=== PATIENT | female | born 1980 | race Caucasian/White ===

== ENCOUNTER 2018-06-02 06:27 | Day surgery (SDC) | payer OTHER, MEDICAID ==
[~2018-06-02] VITALS: Ht 162.6 cm; Wt 73.5 kg
[~2018-06-02 06:27] MED LIST: AMIT10TA6 PO; BUSP15 PO; CALC-1085 PO; CALC625T66 PO; DENO60DI SQ; DOCU250C91 PO; ESCI10TA PO; GABA-531 PO; NAPR-58 PO; THIO50 PO; TOLT2CAP27 PO
[2018-06-02] MEDS ORDERED: PROPOFOL 1% 20 ML VIAL IVP ONE (06:28)
[2018-06-02] MEDS ORDERED: ROCURONIUM BROMIDE 10 MG/ML 5 ML VIAL IVP ONE (06:28)
[2018-06-02] MEDS ORDERED: LIDOCAINE/PF 2% 5 ML VIAL INJ ONE (06:28)
[2018-06-02] MEDS ORDERED: RINGERS SOLUTION,LACTATED 1,000 ML IV ONE ×2 (06:47→07:00)
[2018-06-02] MEDS ORDERED: MIDAZOLAM HCL 2 MG/2 ML VIAL IVP ONE (12:00)
[2018-06-02] MEDS ORDERED: FentaNYL CITRATE-PF 100 MCG/2 ML VIAL IVP ONE (12:00)
== END 2018-06-02 12:25 | disposition home or self-care (01) ==
LOC: SURGERY 06:27
PROVIDERS: ATTEND Dentist General Practice
DX: K05.30 Chronic periodontitis, unspecified (principal); K03.6 Deposits [accretions] on teeth; F41.9 Anxiety disorder, unspecified; H54.40 Blindness, one eye, unspecified eye; F72 Severe intellectual disabilities
CPT/HCPCS: 36415; 41899; 84703; J2250; J2704; J3010; J3490 ×2; J7120

== ENCOUNTER 2019-10-26 05:43 | Day surgery (SDC) | payer OTHER, MEDICAID ==
[~2019-10-26] VITALS: Ht 167.6 cm; Wt 66.0 kg
[~2019-10-26 05:43] MED LIST changes: +CHLO25 PO; +DOCU-342 PO; -DOCU250C91 PO; +NALT50TA6 PO; +NAPR-1025 PO; -NAPR-58 PO; +RINGERS SOLUTION,LACTATED 1,000 ML IV ONE; -THIO50 PO; +TOLT2CAP PO; -TOLT2CAP27 PO
[2019-10-26] MEDS ORDERED: METOCLOPRAMIDE HCL 5 MG/ML 2 ML VIAL IVP ONE (05:44)
[2019-10-26] MEDS ORDERED: ONDANSETRON HCL 4 MG/2 ML VIAL IVP ONE (05:44)
[2019-10-26] MEDS ORDERED: PROPOFOL 1% 20 ML VIAL IVP ONE (05:44)
[2019-10-26] MEDS ORDERED: DEXAMETHASONE SOD PHOS 4 MG/ML VIAL IVP ONE (05:44)
[2019-10-26] MEDS ORDERED: FentaNYL CITRATE-PF 100 MCG/2 ML VIAL IVP ONE (05:44)
[2019-10-26] MEDS ORDERED: SUCCINYLCHOLINE CHLORIDE 20 MG/ML 10 ML VIAL IVP ONE (05:44)
[2019-10-26] MEDS ORDERED: RINGERS SOLUTION,LACTATED 1,000 ML IV ONE (06:30)
[2019-10-26] MEDS ORDERED: AMPICILLIN SODIUM 1 GM/VIAL ONE ×2 (07:24→07:25)
[2019-10-26] MEDS ORDERED: SODIUM CHLORIDE 0.9% 100 ML ONE (07:25)
[2019-10-26] MEDS ORDERED: MEPERIDINE-PF 25 MG/ML VIAL IVP PRN (10:00)
[2019-10-26] MEDS ORDERED: HYDROmorphone 2 MG/ML SYRINGE IVP PRN (10:00)
[2019-10-26] MEDS ORDERED: FentaNYL CITRATE-PF 100 MCG/2 ML VIAL IVP PRN (10:00)
== END 2019-10-26 11:55 | disposition home or self-care (01) ==
LOC: SURGERY 05:43
PROVIDERS: ATTEND Dentist General Practice
DX: K02.9 Dental caries, unspecified (principal); K05.30 Chronic periodontitis, unspecified; K03.6 Deposits [accretions] on teeth; F41.9 Anxiety disorder, unspecified; M85.80 Other specified disorders of bone density and structure, unspecified site; Z79.899 Other long term (current) drug therapy; Z79.01 Long term (current) use of anticoagulants; R97.8 Other abnormal tumor markers
CPT/HCPCS: 36415; 41899; 84702; J0290; J0330; J1100; J2405; J2704; J2765; J3010; J7050; J7120

== ENCOUNTER 2020-11-28 06:47 | Day surgery (SDC) | payer OTHER, MEDICAID ==
[~2020-11-28] VITALS: Ht 165.1 cm; Wt 63.6 kg
[~2020-11-28 06:47] MED LIST changes: -CHLO25 PO; +CHLO25TA47 PO; -DOCU-342 PO; +DOCU-350 PO; +ESCI-8 PO; -ESCI10TA PO; +GABA-1181 PO; -GABA-531 PO
[2020-11-28] MEDS ORDERED: RINGERS SOLUTION,LACTATED 1,000 ML IV ONE (07:00)
[2020-11-28] MEDS ORDERED: AMPICILLIN SODIUM 1 GM/VIAL ONE (07:21)
[2020-11-28 08:17] LABS: BASOPHILS % (AUTO) 0.3 % (0.0-2.0); EOSINOPHILS % (AUTO) 1.2 % (1.0-6.0); HEMATOCRIT 38.6 % (36-46); HEMOGLOBIN 12.8 g/dL (12.0-16.0); LYMPHOCYTES % (AUTO) 24.1 % (22.0-44.0); MEAN CORPUSCULAR HEMOGLOBIN 30.2 pg (26.0-34.0); MEAN CORPUSCULAR HGB CONC 33.2 G/dL (31.0-37.0); MEAN CORPUSCULAR VOLUME 91 fL (80-100); MONOCYTES # (AUTO) 0.3 K/uL (0.1-1.0); MONOCYTES % (AUTO) 7.9 % (2.0-9.0); NEUTROPHILS # (AUTO) 2.6 K/uL (1.8-7.7); NEUTROPHILS % (AUTO) 66.5 % (40.0-70.0); PLATELET COUNT (AUTO) 160 K/uL (150-450); RED BLOOD CELL COUNT(AUTO) 4.25 MIL/uL (4.00-5.20); RED CELL DISTRIBUTION WIDTH 13.7 % (11.5-14.5)
[2020-11-28 08:20] LABS: COVID AG,FIA SOURCE NASOPHARYNGEAL
[2020-11-28 08:25] LABS: PROTHROMBIN TIME 10.9 SEC (9.4-11.6)
[2020-11-28 08:31] LABS: ANION GAP 11 mmol/L (8-16); CALCIUM, TOTAL 8.7 mg/dL (8.8-10.5); CARBON DIOXIDE 24 mmol/L (22-29); CHLORIDE 105 mmol/L (98-107); CREATININE 0.98 mg/dL (0.60-1.30); GLOMERULAR FILTR. RATE CALC > 60 mL/min (>60); GLUCOSE,RANDOM 89 mg/dL (70-110); POTASSIUM 3.6 mmol/L (3.5-5.1); SODIUM SERUM 140 mmol/L (136-145); UREA NITROGEN, BLOOD 20 mg/dL (7-18)
[2020-11-28 08:46] LABS: ALANINE AMINOTRANSFERASE 18 U/L (12-78); ALBUMIN 3.7 g/dL (3.4-5.0); ALKALINE PHOSPHATASE 52 U/L (46-116); ASPARTATE AMINOTRANSFERASE 14 U/L (15-37); BILIRUBIN,TOTAL 0.3 mg/dL (0.1-1.0); TOTAL PROTEIN, SERUM 7.8 g/dL (6.4-8.2)
[2020-11-28] MEDS ORDERED: SUCCINYLCHOLINE CHLORIDE 20 MG/ML 10 ML VIAL IVP ONE (12:00)
[2020-11-28] MEDS ORDERED: FentaNYL CITRATE PF 100 MCG/2 ML VIAL IVP ONE (12:00)
[2020-11-28] MEDS ORDERED: LIDOCAINE/PF 2% 5 ML VIAL IM ONE (12:00)
[2020-11-28] MEDS ORDERED: 0.9% SODIUM CHLORIDE 10 ML VIAL IVP ONE (12:00)
[2020-11-28] MEDS ORDERED: DEXAMETHASONE SOD PHOS 4 MG/ML VIAL IVP ONE (12:00)
[2020-11-28] MEDS ORDERED: ONDANSETRON HCL 4 MG/2 ML VIAL IVP ONE (12:00)
[2020-11-28] MEDS ORDERED: PROPOFOL 1% 20 ML VIAL IVP ONE (12:00)
== END 2020-11-28 13:10 | disposition designated cancer center or children's hospital (05) ==
LOC: SURGERY 06:47
PROVIDERS: ATTEND Dentist General Practice
DX: K02.9 Dental caries, unspecified (principal); K03.6 Deposits [accretions] on teeth; K05.30 Chronic periodontitis, unspecified; F41.9 Anxiety disorder, unspecified; M85.80 Other specified disorders of bone density and structure, unspecified site; R32 Unspecified urinary incontinence; K59.00 Constipation, unspecified; Z79.899 Other long term (current) drug therapy; Z20.822 Contact with and (suspected) exposure to COVID-19; Z79.01 Long term (current) use of anticoagulants
CPT/HCPCS: 36415; 41899; 71045; 80053; 84703; 85025; 85610; 85730; 87426; 93005; C9803; J0290; J0330; J1100; J2405; J2704; J3010; J3490; J7120

== ENCOUNTER 2022-01-15 06:02 | Day surgery (SDC) | payer OTHER, MEDICAID ==
[~2022-01-15] VITALS: Ht 170.2 cm; Wt 62.0 kg
[~2022-01-15 06:02] MED LIST changes: +AMIT-166 PO; -AMIT10TA6 PO; -CHLO25TA47 PO; +CHLO25TA69 PO; -RINGERS SOLUTION,LACTATED 1,000 ML IV ONE
[2022-01-15] MEDS ORDERED: DEXAMETHASONE SOD PHOS 4 MG/ML VIAL IVP ONE (06:03)
[2022-01-15] MEDS ORDERED: FentaNYL CITRATE PF 100 MCG/2 ML VIAL IVP ONE (06:03)
[2022-01-15] MEDS ORDERED: ROCURONIUM BROMIDE 10 MG/ML 5 ML VIAL IVP ONE (06:03)
[2022-01-15] MEDS ORDERED: 0.9% SODIUM CHLORIDE 10 ML VIAL IVP ONE (06:03)
[2022-01-15] MEDS ORDERED: ONDANSETRON HCL 4 MG/2 ML VIAL IVP ONE (06:03)
[2022-01-15] MEDS ORDERED: PROPOFOL 1% 20 ML VIAL IVP ONE (06:03)
[2022-01-15] MEDS ORDERED: SODIUM CHLORIDE 0.9% 1,000 ML ONE (06:08)
[2022-01-15] MEDS ORDERED: RINGERS SOLUTION,LACTATED 1,000 ML IV ONE ×2 (06:30→06:34)
[2022-01-15] MEDS ORDERED: AMPICILLIN SODIUM 2 GM/NS 100 ML IV ONE (06:57)
[2022-01-15 07:21] LABS: COVID AG,FIA SOURCE NASOPHARYNGEAL
[2022-01-15 07:27] LABS: BASOPHILS % (AUTO) 0.3 % (0.0-2.0); EOSINOPHILS % (AUTO) 1.1 % (1.0-6.0); HEMATOCRIT 34.5 % (36-46); LYMPHOCYTES % (AUTO) 18.7 % (22.0-44.0); MEAN CORPUSCULAR HEMOGLOBIN 26.4 pg (26.0-34.0); MEAN CORPUSCULAR HGB CONC 31.9 G/dL (31.0-37.0); MEAN CORPUSCULAR VOLUME 83 fL (80-100); MONOCYTES # (AUTO) 0.3 K/uL (0.1-1.0); MONOCYTES % (AUTO) 5.6 % (2.0-9.0); NEUTROPHILS # (AUTO) 3.8 K/uL (1.8-7.7); NEUTROPHILS % (AUTO) 74.3 % (40.0-70.0); PLATELET COUNT (AUTO) 251 K/uL (150-450); RED BLOOD CELL COUNT(AUTO) 4.17 MIL/uL (4.00-5.20); RED CELL DISTRIBUTION WIDTH 14.1 % (11.5-14.5)
[2022-01-15 07:34] LABS: ANION GAP 6 mmol/L (8-16); CALCIUM, TOTAL 8.8 mg/dL (8.8-10.5); CARBON DIOXIDE 28 mmol/L (22-29); CHLORIDE 103 mmol/L (98-107); CREATININE 0.88 mg/dL (0.60-1.30); GLOMERULAR FILTR. RATE CALC > 60 mL/min (>60); GLUCOSE,RANDOM 87 mg/dL (70-110); POTASSIUM 3.8 mmol/L (3.5-5.1); SODIUM SERUM 137 mmol/L (136-145); UREA NITROGEN, BLOOD 20 mg/dL (7-18)
[2022-01-15 07:40] LABS: INR 1.1 (0.9-1.1); PROTHROMBIN TIME 11.3 SEC (9.4-11.6)
== END 2022-01-15 11:00 | disposition home or self-care (01) ==
LOC: SURGERY 06:02
PROVIDERS: ATTEND Dentist General Practice
DX: K02.9 Dental caries, unspecified (principal); K05.30 Chronic periodontitis, unspecified; K03.6 Deposits [accretions] on teeth; H54.40 Blindness, one eye, unspecified eye; F41.9 Anxiety disorder, unspecified; Z79.01 Long term (current) use of anticoagulants; Z79.899 Other long term (current) drug therapy; Z98.890 Other specified postprocedural states; F72 Severe intellectual disabilities
CPT/HCPCS: 36415; 41899; 71045; 80048; 84703; 85025; 85610; 85730; 87426; 93005; C9803; J0290; J1100; J2405; J2704; J3010; J3490; J7030; J7120; Z7610